=== PATIENT | female | born 1935 | race Caucasian/White ===

== ENCOUNTER → 2016-05-10 | Outpatient (CLI) | payer MEDICARE, OTHER ==
[~2016-05-10] MED LIST: ALLEGRA-D 12 H1 EACH PO; ASPIR 8181 MG PO; CALCIUM 600 +1 EA14 PO; CRESTOR20 MG PO; FLONASE16 GM NASBOTH; IBUPROFEN600 MG PO; PREDNISOLONE ACETATE 1% EYERT; PRILOSEC20 MG PO; SINEMET 25-1001 TAB PO; VENTOLIN HFA8 GM INH; VITAMIN D31000 UNI1 PO
== END | disposition short-term general hospital (02) ==
LOC: CLCARD
DX: R93.1 Abnormal findings on diagnostic imaging of heart and coronary circulation (principal); J45.909 Unspecified asthma, uncomplicated; I25.10 Atherosclerotic heart disease of native coronary artery without angina pectoris; E78.5 Hyperlipidemia, unspecified; I27.2 Other secondary pulmonary hypertension

== ENCOUNTER → 2016-07-02 | Outpatient (CLI) | payer MEDICARE, OTHER | END | disposition short-term general hospital (02) | LOC: CLPULM 12:15 | DX: I26.99 Other pulmonary embolism without acute cor pulmonale (principal); J40 Bronchitis, not specified as acute or chronic; D64.9 Anemia, unspecified; R42 Dizziness and giddiness; J45.909 Unspecified asthma, uncomplicated; E78.5 Hyperlipidemia, unspecified; S05.72XA Avulsion of left eye, initial encounter; G25.81 Restless legs syndrome; R09.02 Hypoxemia; I27.2 Other secondary pulmonary hypertension; R01.1 Cardiac murmur, unspecified; Z79.01 Long term (current) use of anticoagulants; Z86.2 Personal history of diseases of the blood and blood-forming organs and certain disorders involving the immune mechanism; Z87.2 Personal history of diseases of the skin and subcutaneous tissue ==